=== PATIENT | male | born 1945 | race Caucasian/White ===

== ENCOUNTER 2022-03-02 08:40 | Day surgery (SDC) | payer MEDICARE ==
[~2022-03-02] VITALS: Ht 182.9 cm; Wt 69.1 kg
[~2022-03-02 08:40] MED LIST: ALAVERT10 M1 PO; ATRIPLA PO; DOXAZOCIN; DOXAZOCIN PO; LORATADINE10 MG PO
[2022-03-02] MEDS ORDERED: [UNRECOGNIZED DRUG - OTHER] PO (09:08)
[2022-03-02] MEDS ORDERED: FLONASE NASAL S16 GM NS (09:09)
[2022-03-02] MEDS ORDERED: BIKTARVY 50-201 EACH PO (09:10)
[2022-03-02] MEDS ORDERED: MULTI VITAMINS1 TAB PO (09:12)
[2022-03-02] MEDS ORDERED: SYNTHROID 0.0.025 MG PO (09:12)
[2022-03-02 09:41] VITALS: BP 106/68; PULSE 70; TEMP 97.8
[2022-03-02] MEDS ORDERED: NORCO 325 MG-51 TAB PO (13:53)
[2022-03-02 14:35] VITALS: BP 110/65; PULSE 66
--- NOTE | 2022-03-02 14:35 | NUR ---
Patient returns to room 6 per cart from PACU accompanied by Maribeth MONTEZ and is awake and alert. IV fluids infusing. Temp 97.8. Taking sips of water. Incisions x3 covered with exofin skin glue and wound edges well approximated. Sister in room. Siderails up x2 and call light in reach. Allowed to rest.
[2022-03-02 14:47] VITALS: TEMP 98.1
[2022-03-02 14:50] VITALS: BP 98/57; PULSE 64
--- NOTE | 2022-03-02 14:50 | NUR ---
Sipping on grape juice. Denies pain or nausea. IV fluids continue.
[2022-03-02 15:05] VITALS: BP 97/68; PULSE 66
--- NOTE | 2022-03-02 15:05 | NUR ---
Continues to sip on juice. Offered snack and refuses. States he prefers to eat home. Has done well drinking juices and water.
[2022-03-02 15:20] VITALS: BP 113/59; PULSE 76
--- NOTE | 2022-03-02 15:20 | NUR ---
Continues to deny pain or nausea. States he is ready to go home. Instructed that he must urinate prior to discharge.
--- NOTE | 2022-03-02 15:30 | NUR ---
IV to INT. Assisted up to the bathroom and gait is steady.
--- NOTE | 2022-03-02 15:36 | NUR ---
INT discontinued and site is free of redness or swelling. Given clothes and patient states that he is able to dress self.
--- NOTE | 2022-03-02 16:00 | NUR ---
Patient is dressed. Tolerated activity well.
--- NOTE | 2022-03-02 16:10 | NUR ---
Patient dismissal instructions given and patient voices understanding of home cares and follow up in [facility] [place]. Instructed on taking pain medications and that script is available for bulk picker at [facility].
--- NOTE | 2022-03-02 16:19 | NUR ---
Patient dismissed to home per private vehicle driven by sister and taken to the car per wheelchair and assisted into car by Rima MONTEZ with instructions in hand.
== END 2022-03-02 16:19 | disposition home or self-care (01) ==
LOC: SDCO 08:40
DX: K40.90 Unilateral inguinal hernia, without obstruction or gangrene, not specified as recurrent (principal); B20 Human immunodeficiency virus [HIV] disease
CPT/HCPCS: C1781; J0690; J1100; J2405; J2704; J3010; J7120